=== PATIENT | female | born 1995 | race Caucasian/White ===

== ENCOUNTER 2017-07-14 11:51 | Emergency (ER) | payer OTHER ==
[~2017-07-14 11:51] MED LIST: COLACE 100MG C100 MG PO
== END 2017-07-14 13:31 | disposition home or self-care (01) ==
LOC: ER1 11:51
DX: J06.9 Acute upper respiratory infection, unspecified (principal); J34.89 Other specified disorders of nose and nasal sinuses
CPT/HCPCS: 99282

== ENCOUNTER 2021-02-23 13:54 | Emergency (ER) | payer BC, OTHER ==
[~2021-02-23 13:54] MED LIST changes: +AZITHROMYCIN500 MG PO; +BENTYL 10MG CAP10 MG PO; +COLACE CLEAR50 MG PO; +IBUPROFEN600 MG PO; +IBUPROFEN800 MG PO; +LORTAB 5-325 M1 EACH PO; +MEDROL4 MG PO; +OMNICEF 300 MG300 MG PO; +PRENATAL 19 TA1 EAC1 PO; +PROTONIX40 MG PO; +TAMIFLU75 MG PO; +ZANTAC 150 MG150 MG PO; +ZOFRAN 4 MG TAB4 MG PO; +ZOFRAN ODT 4 MG4 MG SL; +ZOFRAN4 MG PO
[2021-02-23] MEDS ORDERED: PROVENTIL HFA6.7 GM INH (15:08)
[2021-02-23] MEDS ORDERED: TESSALON PERLE100 MG PO (15:09)
== END 2021-02-23 15:20 | disposition home or self-care (01) ==
LOC: ER1 13:54
DX: J06.9 Acute upper respiratory infection, unspecified (principal); Z20.822 Contact with and (suspected) exposure to COVID-19
CPT/HCPCS: 0240U; 71045; 99283

== ENCOUNTER 2021-05-24 15:22 | Emergency (ER) | payer OTHER ==
[~2021-05-24 15:22] MED LIST changes: +PROVENTIL HFA6.7 GM INH; +TESSALON PERLE100 MG PO
[2021-05-24 18:58] LABS: RED BLOOD COUNT 4.84 M/UL (4.00-5.10); WHITE BLOOD COUNT 7.1 K/UL (4.5-11.0)
[2021-05-24 19:20] LABS: BUN/CREATININE RATIO 12 (0-10)
[2021-05-24] MEDS ORDERED: ZOFRAN ODT 4 MG4 MG SL (22:07)
[2021-05-24] MEDS ORDERED: PROTONIX40 MG PO (22:07)
[2021-05-24] MEDS ORDERED: CEPHALEXIN500 MG PO (22:07)
== END 2021-05-24 22:18 | disposition home or self-care (01) ==
LOC: ER1 15:22
PROVIDERS: Emergency Medicine
DX: N39.0 Urinary tract infection, site not specified (principal)
CPT/HCPCS: 80053; 81001; 83690; 84703; 85025; 87086; 96365; 96375; 99284; J2405; Q9967

== ENCOUNTER 2021-07-21 20:18 | Emergency (ER) | payer OTHER ==
[~2021-07-21 20:18] MED LIST changes: +CEPHALEXIN500 MG PO
== END 2021-07-21 22:55 | disposition home or self-care (01) ==
LOC: ER1 20:18
DX: J02.9 Acute pharyngitis, unspecified (principal); Z20.822 Contact with and (suspected) exposure to COVID-19
CPT/HCPCS: 71045; 87081; 87880; 99284; U0003

== ENCOUNTER → 2021-09-09 | Outpatient (CLI) | payer OTHER ==
[~2021-09-09] MED LIST changes: +LODINE CAP 300300 MG PO; +ZOFRAN ODT 4 MG4 MG PO
== END ==
LOC: NM 09:00
DX: R11.0 Nausea (principal); R94.8 Abnormal results of function studies of other organs and systems
CPT/HCPCS: 78264

== ENCOUNTER 2021-09-13 22:50 | Emergency (ER) | payer OTHER ==
[~2021-09-13 22:50] MED LIST changes: -LODINE CAP 300300 MG PO; -ZOFRAN ODT 4 MG4 MG PO
[2021-09-13 23:33] LABS: HEMOGLOBIN 13.8 gm/dl (12.3-15.3); RED BLOOD COUNT 4.38 M/UL (4.00-5.10); WHITE BLOOD COUNT 6.3 K/UL (4.5-11.0)
[2021-09-13 23:56] LABS: BUN/CREATININE RATIO 14 (0-10)
[2021-09-14] MEDS ORDERED: OMNICEF 300 MG300 MG PO (01:05)
[2021-09-14] MEDS ORDERED: LODINE CAP 300300 MG PO (01:05)
[2021-09-14] MEDS ORDERED: ZOFRAN ODT 4 MG4 MG PO (01:05)
== END 2021-09-14 01:46 | disposition home or self-care (01) ==
LOC: ER1 22:50
PROVIDERS: Physician Assistant
DX: N83.202 Unspecified ovarian cyst, left side (principal); N39.0 Urinary tract infection, site not specified
CPT/HCPCS: 80053; 81001; 83690; 84703; 85025; 87086; 96374; 96375; 99284; J1885; J2405; Q9967

== ENCOUNTER → 2021-10-07 | Outpatient (CLI) | payer OTHER ==
[~2021-10-07] MED LIST changes: +LODINE CAP 300300 MG PO; +ZOFRAN ODT 4 MG4 MG PO
== END ==
LOC: RAD 09-11 09:00
DX: R11.0 Nausea (principal)
CPT/HCPCS: 74246; 74248

== ENCOUNTER 2022-03-24 18:25 | Emergency (ER) | payer OTHER ==
[2022-03-24 19:12] LABS: HEMOGLOBIN 13.7 gm/dl (12.3-15.3); RED BLOOD COUNT 4.47 M/UL (4.00-5.10); WHITE BLOOD COUNT 5.3 K/UL (4.5-11.0)
[2022-03-24 20:10] LABS: BUN/CREATININE RATIO 12 (0-10)
== END 2022-03-25 01:20 | disposition home or self-care (01) ==
LOC: ER1 18:25
PROVIDERS: Family Medicine
DX: R51.9 Headache, unspecified (principal)
CPT/HCPCS: 71045; 80053; 81001; 82550; 82553; 84484; 84703; 85025; 93005; 96374; 99284; J0780; J1200; J1885

== ENCOUNTER → 2022-04-22 | Outpatient (CLI) | payer OTHER | LOC: KOH-I 08:22 | DX: R51.0 Headache with orthostatic component, not elsewhere classified (principal) | CPT/HCPCS: 70450 ==

== ENCOUNTER 2022-07-02 19:01 | Emergency (ER) | payer OTHER ==
[2022-07-02 22:23] LABS: HEMOGLOBIN 14.3 gm/dl (12.3-15.3); RED BLOOD COUNT 4.62 M/UL (4.00-5.10); WHITE BLOOD COUNT 6.4 K/UL (4.5-11.0)
[2022-07-02 22:44] LABS: BUN/CREATININE RATIO 8 (0-10)
[2022-07-03] MEDS ORDERED: PROTONIX40 MG PO (03:23)
[2022-07-03] MEDS ORDERED: CARAFATE 1 GM TA1 GM PO (03:23)
[2022-07-03] MEDS ORDERED: SENNA8.6 MG PO (03:23)
== END 2022-07-03 03:36 | disposition home or self-care (01) ==
LOC: ER1 19:01
PROVIDERS: Physician Assistant
DX: R10.11 Right upper quadrant pain (principal); R11.2 Nausea with vomiting, unspecified; R10.817 Generalized abdominal tenderness
CPT/HCPCS: 80053; 81001; 83690; 84703; 85025; 87086; 99284; Q9967